=== PATIENT | female | born 1940 | race Hispanic/Latino ===

== ENCOUNTER 2024-05-25 11:25 | Emergency (ER) | payer MEDICARE ==
[~2024-05-25] VITALS: Ht 157.5 cm; Wt 81.6 kg
[2024-05-25 12:27] VITALS: TEMP 98.8
[2024-05-25 13:36] VITALS: PULSE 65; RESP 16
[2024-05-25 13:45] LABS: CLARITY,URINE CLEAR (CLEAR); COLOR,URINE YELLOW (YELLOW); GLUCOSE, URINE 1+ (NEGATIVE); KETONES,URINE NEGATIVE (NEGATIVE); LEUKOCYTE ESTERASE ,URINE NEGATIVE (NEGATIVE); NITRITE,URINE NEGATIVE (NEGATIVE); PH,URINE 5.5 (5 - 7); PROTEIN,URINE DIPSTICK NEGATIVE (NEGATIVE)
[2024-05-25 13:46] LABS: BILIRUBIN,URINE NEGATIVE (NEGATIVE); URINE UROBILINOGEN 0.2 mg/dL (0.2 - 1)
[2024-05-25 13:47] LABS: BACTERIA,URINE FEW /HPF; EPITHELIAL CELLS,URINE RARE /LPF; WBC,URINE (MAN) 0-5 /HPF (0-5)
[2024-05-25 17:27] VITALS: BP 167/77; PULSE 66; RESP 16; O2SAT 99
== END 2024-05-25 16:13 | disposition home or self-care (01) ==
LOC: ER 11:58
DX: R33.9 Retention of urine, unspecified (principal); I10 Essential (primary) hypertension; E11.9 Type 2 diabetes mellitus without complications; R51.9 Headache, unspecified; R53.1 Weakness; R20.0 Anesthesia of skin
CPT/HCPCS: 51700; 81001; 87086; 99282

== ENCOUNTER 2024-09-24 13:47 | Emergency (ER) | payer MEDICARE ==
[2024-09-24 13:53] VITALS: PULSE 85; RESP 16; TEMP 97.4; O2SAT 97
[2024-09-24] MEDS ORDERED: LACTATED RINGER'S 1,000 ML INJ ONE (14:15)
[2024-09-24] MEDS ORDERED: KETOROLAC TROMETHAMINE 30 MG/ML VIAL IV ONE (14:15)
[2024-09-24] MEDS ORDERED: TYLENOL325 MG PO (14:18)
[2024-09-24] MEDS ORDERED: CEFDINIR300 MG PO (14:18)
[2024-09-24] MEDS ORDERED: PROBIOTIC & AC1 EACH PO (14:18)
[2024-09-24] MEDS: CEFTRIAXONE 1 GM VIAL IM ONE (14:31)
== END 2024-09-24 14:35 | disposition home or self-care (01) ==
LOC: FSED 13:52
DX: R41.0 Disorientation, unspecified (principal); N39.0 Urinary tract infection, site not specified; R30.0 Dysuria; E86.0 Dehydration; R53.81 Other malaise; I10 Essential (primary) hypertension; E11.9 Type 2 diabetes mellitus without complications; F17.210 Nicotine dependence, cigarettes, uncomplicated
CPT/HCPCS: 99284; J0696